=== PATIENT | male | born 1950 | race Caucasian/White ===

== ENCOUNTER 2016-09-15 11:08 | Emergency (ER) | payer OTHER ==
[~2016-09-15] VITALS: Ht 167.6 cm; Wt 76.0 kg
[~2016-09-15 11:08] MED LIST: BACTDS PO; CAPT25TA3 PO; CEPH-443 PO; FAMO-96 PO; GLIP-95 PO; HYDR-3498 PO; METF500T4 PO; MTF1000T PO; NORT10CA2 PO; OMEP20CA16 PO
[2016-09-15 11:15] VITALS: Ht 167.6 cm; Wt 76.0 kg
[2016-09-15] MEDS ORDERED: AZITHROMYCIN 250 MG TAB PO ONE (13:00)
--- NOTE | 2016-09-15 13:15 | RADRPT ---
PROCEDURE: XR Chest. CLINICAL INDICATION: sob TECHNIQUE: Single frontal view of the chest was obtained. COMPARISON: Chest x-ray from 04/23/2016 FINDINGS: The heart and mediastinum are within normal limits. The lungs are clear. There is no significant pleural effusion or pneumothorax. IMPRESSION: No acute disease. RPTAT: EE Physician Dave Date Time Electronically viewed and signed by Abner Martinez Physician on 09/15/2016 13:15 RA/
[2016-09-15] MEDS ORDERED: AZIT250T94 PO (13:48)
[2016-09-15] MEDS ORDERED: FLUT9.9S NASAL (13:48)
[2016-09-15] MEDS ORDERED: ALBU18HF INHALATION (13:48)
[2016-09-15] MEDS ORDERED: DOCU-144 PO (13:48)
--- NOTE | 2016-09-15 13:50 | ERD ---
ER Documentation Chief Complaint Date/Time DATE: 09/15/16 TIME: 13:50 Chief Complaint SHORTNESS OF BREATH; HPI Patient is a 65-year-old male with diabetes and hypertension who presents with shortness of breath. The patient says it feels like he can get a deep breath. He says that this is been going on for years. The patient said that he just got tired of it so he came to the emergency department today. The patient is speaking in full sentences. He said that he has been referred to an ear nose and throat doctor. The patient has constipation as well. He denies fevers or cough. He said that he does have a lot of phlegm. ROS All systems reviewed and are negative except as per history of present illness. Medications Home Meds Active Scripts Docusate Sodium* (Colace*) 100 Mg Capsule, 100 MG PO BID, #60 CAP Prov:ELAINE LAWTON MD 09/15/16 Fluticasone Propionate (Flonase Allergy Relief) 9.9 Ml [place].susp, 1 SPRAY NASAL BID, #1 BOTTLE TO EACH NOSTRIL Prov:ELAINE LAWTON MD 09/15/16 Albuterol Sulfate* (Ventolin HFA*) 18 Gm Hfa.aer.ad, 2 PUFF INHALATION Q4H, #1 INHALER Prov:ELAINE LAWTON MD 09/15/16 Azithromycin* (Zithromax*) 250 Mg Tablet, 250 MG PO DAILY for 4 Days, TAB Prov:ELAINE LAWTON MD 09/15/16 Famotidine* (Pepcid*) 20 Mg Tablet, 20 MG PO BID for 30 Days, TAB Prov:SHANTELL LEWIS MD 04/23/16 Reported Medications Captopril* (Captopril*) 25 Mg Tablet, 25 MG PO BID, #60 TAB 04/23/16 Nortriptyline Hcl* (Nortriptyline Hcl*) 10 Mg Capsule, 10 MG PO HS, CAP 04/23/16 Omeprazole* (Omeprazole*) 20 Mg Capsule.dr, 20 MG PO AC BREAKFAST, #30 CAP 04/23/16 Glipizide* (Glipizide*) 10 Mg Tablet, 20 MG PO BID, TAB 04/23/16 Metformin* (Glucophage*) 1,000 Mg Tablet, 1000 MG PO BID, #60 TAB 04/23/16 Allergies Allergies: Coded Allergies: Penicillins (Verified Allergy, Severe, 09/15/16) PMhx/Soc History of Surgery: No Anesthesia Reaction: No Hx Neurological Disorder: No Hx Respiratory Disorders: No Hx Cardiac Disorders: No Hx Psychiatric Problems: No Hx Miscellaneous Medical Probl: Yes (HTN, DM) Hx Alcohol Use: Yes (SOMETIMES) Hx Substance Use: No Hx Tobacco Use: No Smoking Status: Never smoker FmHx Family History: No coronary disease Physical Exam Vitals Vital Signs Date Time Temp Pulse Resp B/P Pulse Ox O2 Delivery O2 Flow Rate FiO2 09/15/16 13:57 98.1 80 19 142/77 98 Room Air 09/15/16 11:15 98.2 94 19 157/75 96 Physical Exam Const: No acute distress Head: Atraumatic Eyes: Normal Conjunctiva ENT: Normal External Ears, Nose and Mouth. Neck: Full range of motion..~ No meningismus. Resp: Clear to auscultation bilaterally Cardio: Regular rate and rhythm, no murmurs Abd: Soft, non tender, non distended. Normal bowel sounds Skin: No petechiae or rashes Back: No midline or flank tenderness Ext: No cyanosis, or edema Neur: Awake and alert Psych: Normal Mood and Affect Results 24 hrs Current Medications Medications (Trade) Dose Ordered Sig/Susan Route PRN Reason Start Time Stop Time Status Last Admin Dose Admin Azithromycin (Zithromax) 500 mg ONCE ONCE PO 09/15/16 13:00 09/15/16 13:01 DC 09/15/16 12:42 Procedures/MDM EKG read by me: Rate/Rhythm: Regular rate and rhythm at a rate of 83 Intervals: Normal Impression: No evidence of ischemia or arrhythmia Chest x-ray negative per radiology. Patient is a 65-year-old male who presents with shortness of breath. His EKG shows no signs of ischemia. Chest x-ray was negative for pneumonia or pneumothorax. At this point I doubt acute coronary syndrome, pneumonia, pneumothorax, pulmonary embolism, or aortic dissection. I believe outpatient management is appropriate. However the patient will need close follow-up with a primary doctor within 24-48 hours for reevaluation. He will be given a prescription for Ventolin, Zithromax, Flonase, and Colace. The patient can return for any worsening symptoms. Departure Diagnosis: Primary Impression: Bronchitis Additional Impression: Shortness of breath Condition: Fair Patient Instructions: Bronchitis, Antiobiotic Treatment (Adult) Additional Instructions: Llame al doctor MAANA y ryan javier KWASI PARA DENTRO DE 1-2 CONNER.Dgale a la secretaria que nosotros le instruimos hacer esta kwasi.Avise o llame si ross condicin se empeora antes de la kwasi. Regresa aqui si peor o no mejor. ELAINE LAWTON MD Sep 15, 2016 13:50
[2016-09-15 13:57] VITALS: BP 142/77; PULSE 80; RESP 19; TEMP 98.1
== END 2016-09-15 13:58 | disposition home or self-care (01) ==
LOC: FTE 11:08
DX: J20.9 Acute bronchitis, unspecified (principal); I10 Essential (primary) hypertension; E11.9 Type 2 diabetes mellitus without complications; Z79.84 Long term (current) use of oral hypoglycemic drugs
CPT/HCPCS: 71010; 93005

== ENCOUNTER 2016-11-14 10:50 | Emergency (ER) | payer OTHER ==
[~2016-11-14] VITALS: Ht 170.2 cm; Wt 79.0 kg
[~2016-11-14 10:50] MED LIST changes: +ALBU18HF INHALATION; +AZIT250T94 PO; -BACTDS PO; -CEPH-443 PO; +DOCU-144 PO; +FAMO-18 PO; -FAMO-96 PO; +FLUT9.9S NASAL; -HYDR-3498 PO; -METF500T4 PO
[2016-11-14 11:00] VITALS: Ht 170.2 cm; Wt 79.0 kg
[2016-11-14] MEDS ORDERED: LACTULOSE 30ML CUP PO ONE (11:30)
[2016-11-14 12:19] LABS: ADD UMIC YES; UR ASCORBIC ACID NEGATIVE (NEGATIVE); UR BILIRUBIN (Dip) NEGATIVE (NEGATIVE); UR BLOOD (Dip) 2+ mg/dL (NEGATIVE); UR CLARITY CLEAR (CLEAR); UR COLOR YELLOW (YELLOW); UR GLUCOSE (Dip) 3+ mg/dL (NEGATIVE); UR KETONES (Dip) NEGATIVE (NEGATIVE); UR LEUKOCYTE ESTERASE (Dip) NEGATIVE Leu/ul (NEGATIVE); UR NITRITE (Dip) NEGATIVE (NEGATIVE); UR RBC 5 /HPF (0-5); UR SPECIFIC GRAVITY (Dip) 1.016 (1.003-1.030); UR TOTAL PROTEIN (Dip) NEGATIVE (NEGATIVE); UR UROBILINOGEN (Dip) NEGATIVE (NEGATIVE)
[2016-11-14] MEDS ORDERED: DOCU-144 PO (12:28)
--- NOTE | 2016-11-14 12:35 | ERD ---
ER Documentation Chief Complaint Date/Time DATE: 11/14/16 TIME: 12:29 Chief Complaint Complains of constipation and unable to urinate since yesterday HPI This is a 65-year-old male that presents to the ER with a past medical history of diabetes and hypertension. Patient states that over the last 2 days he has not been able to have a normal bowel movement. Patient typically has constipation and today patient tried to use the restroom however only little balls of poop came out. Patient also has ongoing urinary retention and states that today he felt pain over his bladder and burning with urination. Patient denies any nausea or vomiting he denies any previous abdominal surgeries. Patient denies any hematochezia, hematuria. He denies any rectal pain or abdominal pain. He denies any lower back pain. Patient denies any fevers or chills. Patient states that yesterday he had some chest pain, however chest pain has not resolved. He denies any chest pain at this time or shortness of breath. ROS 12 point review of systems was done, all negative except per HPI. Medications Home Meds Active Scripts Docusate Sodium* (Colace*) 100 Mg Capsule, 100 MG PO TID, #30 CAP Prov:CARTER RAMIREZ 11/14/16 Docusate Sodium* (Colace*) 100 Mg Capsule, 100 MG PO BID, #60 CAP Prov:ELAINE LAWTON MD 09/15/16 Fluticasone Propionate (Flonase Allergy Relief) 9.9 Ml [place].susp, 1 SPRAY NASAL BID, #1 BOTTLE TO EACH NOSTRIL Prov:ELAINE LAWTON MD 09/15/16 Albuterol Sulfate* (Ventolin HFA*) 18 Gm Hfa.aer.ad, 2 PUFF INHALATION Q4H, #1 INHALER Prov:ELAINE LAWTON MD 09/15/16 Azithromycin* (Zithromax*) 250 Mg Tablet, 250 MG PO DAILY for 4 Days, TAB Prov:ELAINE LAWTON MD 09/15/16 Famotidine* (Pepcid*) 20 Mg Tablet, 20 MG PO BID for 30 Days, TAB Prov:SHANTELL LEWIS MD 04/23/16 Reported Medications Captopril* (Captopril*) 25 Mg Tablet, 25 MG PO BID, #60 TAB 11/30/16 Nortriptyline Hcl* (Nortriptyline Hcl*) 10 Mg Capsule, 10 MG PO HS, CAP 04/23/16 Omeprazole* (Omeprazole*) 20 Mg Capsule.dr, 20 MG PO AC BREAKFAST, #30 CAP 04/23/16 Glipizide* (Glipizide*) 10 Mg Tablet, 20 MG PO BID, TAB 04/23/16 Metformin* (Glucophage*) 1,000 Mg Tablet, 1000 MG PO BID, #60 TAB 04/23/16 Allergies Allergies: Coded Allergies: Penicillins (Verified Allergy, Severe, 09/15/16) PMhx/Soc History of Surgery: No Anesthesia Reaction: No Hx Neurological Disorder: No Hx Respiratory Disorders: No Hx Cardiac Disorders: No Hx Psychiatric Problems: No Hx Miscellaneous Medical Probl: Yes (HTN, DM) Hx Alcohol Use: Yes (SOMETIMES) Hx Substance Use: No Hx Tobacco Use: No Physical Exam Vitals Vital Signs Date Time Temp Pulse Resp B/P Pulse Ox O2 Delivery O2 Flow Rate FiO2 11/14/16 11:00 98.3 95 20 171/83 98 Physical Exam GENERAL: The patient is well developed and appropriate for usual state of health , in no apparent distress. HEENT: Atraumatic. CHEST: Clear to auscultation bilaterally. There are no rales, wheezes or rhonchi. HEART: Regular rate and rhythm. No murmurs, clicks, rubs or gallops. ABDOMEN: Soft, nontender and nondistended. Good bowel sounds. No rebound or guarding. No gross peritonitis. No gross organomegaly or masses. No Gray sign or McBurney point tenderness. BACK: No midline or flank tenderness. NEURO: Alert and oriented. SKIN: The skin is warm and dry. Results 24 hrs Laboratory Tests Test 11/14/16 11:50 Urine Color YELLOW Urine Clarity CLEAR Urine pH 5.0 Urine Specific [place] 1.016 Urine Ketones NEGATIVEmg/dL Urine Nitrite NEGATIVEmg/dL Urine Bilirubin NEGATIVEmg/dL Urine Urobilinogen NEGATIVEmg/dL Urine Leukocyte Esterase NEGATIVELeu/ul Urine Microscopic RBC 5/HPF Urine Microscopic WBC 3/HPF Urine Hemoglobin 2+mg/dL Urine Glucose 3+mg/dL Urine Total Protein NEGATIVEmg/dl Current Medications Medications (Trade) Dose Ordered Sig/Susan Route PRN Reason Start Time Stop Time Status Last Admin Dose Admin Lactulose (Enulose) 20 gm ONCE ONCE PO 11/14/16 11:30 11/14/16 11:31 DC Procedures/MDM Patient was stable throughout ER course, his medicines were reviewed patient did have an elevated blood pressure reading. At this time patient does not have hypertensive emergency or urgency. She did state that he did not take his blood pressure medication, I discussed the importance of medication compliance with the patient and asked him to follow-up with his primary care doctor in regards to his blood pressure reading. Patient was able to have a bowel movement before given any medications stated he felt much better, because of his KUB was canceled. Suspicion for bowel obstruction is low as patient has not had any previous abdominal surgeries and does not have any nausea or vomiting. Other differentials that I considered included urinary tract infection, nephrolithiasis, prostatitis, rectal abscess, intra-abdominal abscess , malignancy. At this time there is no evidence of urinary tract infection, patient may have prostatitis however I do not believe that prostatitis is bacterial in etiology. Patient is afebrile and extremely well-appearing. Suspicion for rectal abscess or intra-abdominal abscess is low. Patient's physical examination is completely benign and he is not complaining of any rectal pain or of any abdominal pain. An EKG was done and read by Dr. Lawton 90bpm no ST elevation no T-wave inversion. At this time suspicion for cardiac etiology is low, patient is completely asymptomatic in the ER. Patient will be sent home with docusate. He needs to follow-up with his primary care doctor within 1-2 days return to ER sooner if symptoms worsen. My medical decision making was shared with the patient he understands and agrees with plan. I discussed this case with my supervising physician Dr. Lawton, and he agrees with my medical decision making and plan for this patient. Departure Diagnosis: Primary Impression: Constipation Condition: Stable Patient Instructions: Constipation (Adult) Additional Instructions: Regrese a estas instalaciones dentro de DOS JAIMES para un examen de seguimiento.Regrese antes si ross condicin se empeora. CARTER RAMIREZ Nov 14, 2016 12:35
[2016-11-14 12:59] VITALS: BP 138/78; PULSE 81; RESP 20; TEMP 98.6
== END 2016-11-14 13:03 | disposition home or self-care (01) ==
LOC: FTE 10:50
DX: K59.00 Constipation, unspecified (principal); I10 Essential (primary) hypertension; E11.9 Type 2 diabetes mellitus without complications; Z79.84 Long term (current) use of oral hypoglycemic drugs
CPT/HCPCS: 81001; 93005; P9612

== ENCOUNTER 2017-08-13 08:44 | Emergency (ER) | END 2017-08-13 15:00 | disposition home or self-care (01) ==

== ENCOUNTER 2017-10-06 15:38 | Emergency (ER) | END 2017-10-06 19:51 | disposition left against medical advice (07) ==

== ENCOUNTER 2018-06-01 09:08 | Emergency (ER) | payer OTHER ==
[~2018-06-01] VITALS: Ht 170.2 cm; Wt 78.9 kg
[~2018-06-01 09:08] MED LIST changes: +AZIT250T PO; -AZIT250T94 PO; -FAMO-18 PO; +FAMO-96 PO; -GLIP-95 PO; +GLIP10TA14 PO; +MAGN296S40 PO
[2018-06-01 09:13] VITALS: Ht 170.2 cm; Wt 78.9 kg
--- NOTE | 2018-06-01 11:33 | ERD ---
ER Documentation Chief Complaint Chief Complaint urinary problem, had surgery 04/08/18 HPI Patient is a 67-year-old male with diabetes and previous stricture who presents for dilation. She had a prostate surgery on April 08 in [place] and had a urinary stricture dilated. He was told that he would need 3 dilations done every month and so today is the day he is due for his second dilation. He came to the ER. He was trying to follow-up with Dr. Wynne but was unable to get an appointment for 1 month. Upon review of old medical records this is the patient's 10th visit to the ER since 2008. ROS All systems reviewed and are negative except as per history of present illness. Medications Home Meds Active Scripts Docusate Sodium* (Colace*) 100 Mg Capsule, 100 MG PO BID, #60 CAP Prov:ELAINE LAWTON MD 09/15/16 Albuterol Sulfate* (Ventolin HFA*) 18 Gm Hfa.aer.ad, 2 PUFF INHALATION Q4H, #1 INHALER Prov:ELAINE LAWTON MD 09/15/16 Reported Medications Captopril* (Captopril*) 25 Mg Tablet, 25 MG PO BID, #60 TAB 04/23/16 Nortriptyline Hcl* (Nortriptyline Hcl*) 10 Mg Capsule, 10 MG PO HS, CAP 04/23/16 Omeprazole* (Omeprazole*) 20 Mg Capsule.dr, 20 MG PO AC BREAKFAST, #30 CAP 04/23/16 Glipizide* (Glipizide*) 10 Mg Tablet, 20 MG PO BID, TAB 04/23/16 Metformin* (Glucophage*) 1,000 Mg Tablet, 1000 MG PO BID, #60 TAB 04/23/16 Discontinued Scripts Docusate Sodium* (Colace*) 100 Mg Capsule, 100 MG PO DAILY PRN for CONSTIPATION, #30 CAP Prov:SHANETLL LEWIS MD 08/13/17 Magnesium Citrate* (Magnesium Citrate*) 296 Ml Solution, 296 ML PO ONCE, #1 BOTTLE Prov:SHANTELL LEWIS MD 08/13/17 Docusate Sodium* (Colace*) 100 Mg Capsule, 100 MG PO TID, #30 CAP Prov:CARTER RAMIREZ 11/14/16 Fluticasone Propionate (Flonase Allergy Relief) 9.9 Ml [place].susp, 1 SPRAY NASAL BID, #1 BOTTLE TO EACH NOSTRIL Prov:ELAINE LAWTON MD 09/15/16 Azithromycin* (Zithromax*) 250 Mg Tablet, 250 MG PO DAILY for 4 Days, TAB Prov:ELAINE LAWTON MD 09/15/16 Famotidine* (Pepcid*) 20 Mg Tablet, 20 MG PO BID for 30 Days, TAB Prov:SHANTELL LEWIS MD 04/23/16 Allergies Allergies: Coded Allergies: Penicillins (Verified Allergy, Severe, 06/01/18) PMhx/Soc History of Surgery: No Anesthesia Reaction: No Hx Neurological Disorder: No Hx Respiratory Disorders: No Hx Cardiac Disorders: Yes (high cholesterol; htn) Hx Psychiatric Problems: No Hx Miscellaneous Medical Probl: Yes (HTN, DM) Hx Alcohol Use: Yes Hx Substance Use: No Hx Tobacco Use: No Smoking Status: Never smoker FmHx Family History: No diabetes Physical Exam Vitals Vital Signs Date Temp Pulse Resp B/P (MAP) Pulse Ox O2 O2 Flow FiO2 Time Delivery Rate 06/01/18 97.9 76 16 164/93 100 Room Air 10:45 (116) 06/01/18 97.7 100 18 184/92 96 09:13 (122) Physical Exam Const: No acute distress Head: Atraumatic Eyes: Normal Conjunctiva ENT: Normal External Ears, Nose and Mouth. Neck: Full range of motion. No meningismus. Resp: Clear to auscultation bilaterally Cardio: Regular rate and rhythm, no murmurs Abd: Soft, non tender, non distended. Normal bowel sounds Skin: No petechiae or rashes Back: No midline or flank tenderness Ext: No cyanosis, or edema Neur: Awake and alert Psych: Normal Mood and Affect Procedures/MDM Patient is a 67-year-old male presents for urethral stricture dilation. I spoke with Dr. Wynne who said that this is not need to be done today and that he would not come to the emergency department to do this elective procedure. The patient will be discharging to follow-up with Dr. Wynne in the office. He can also try to find another urologist if you would prefer. This is a nonemergent procedure. He can return for any worsening symptoms. Departure Diagnosis: Primary Impression: Urethral stricture Urethral stricture type: unspecified stricture type Urethral stricture sex- location: male urethra-unspecified Qualified Codes: N35.919 - Unspecified urethral stricture, male, unspecified site Condition: Fair Patient Instructions: Urethral Stricture Referrals: STEVEN WYNNE MD Additional Instructions: Specialist:Usted tiene javier condicin mdica que requiere que breana a un especialista dentro de los prximos 1-2 meyers.POR FAVOR,CON UPTON SEGUIMIENTO DE PRIMARIA PHSICIAN refferal. SI USTED NO TIENE UN MDICO GENERAL Y / O USTED NO PUEDE PAGAR gilbert a un mdico,los siguientes quick RECURSOS sido suministrado a usted. ES UPTON RESPONSABILIDAD PARA SER VISTOS POR EL ESPECIALISTA: ELAINE LAWTON MD Jun 01, 2018 11:33
[2018-06-01 11:36] VITALS: BP 141/108; PULSE 92; RESP 18
== END 2018-06-01 11:37 | disposition home or self-care (01) ==
LOC: E/R 09:08
DX: N35.919 Unspecified urethral stricture, male, unspecified site (principal); I10 Essential (primary) hypertension; E11.9 Type 2 diabetes mellitus without complications; Z79.84 Long term (current) use of oral hypoglycemic drugs
CPT/HCPCS: 99282

== ENCOUNTER 2018-09-21 15:45 | Emergency (ER) | payer OTHER ==
[~2018-09-21] VITALS: Ht 180.3 cm; Wt 80.1 kg
[~2018-09-21 15:45] MED LIST changes: -AZIT250T PO; -FAMO-96 PO; -FLUT9.9S NASAL; -MAGN296S40 PO
[2018-09-21 15:59] VITALS: BP 158/93; PULSE 100; RESP 18; Ht 180.3 cm; Wt 80.1 kg
== END 2018-09-21 19:14 | disposition left against medical advice (07) ==
LOC: E/R 15:45
DX: Z53.21 Procedure and treatment not carried out due to patient leaving prior to being seen by health care provider (principal)
CPT/HCPCS: 93005